=== PATIENT | male | born 2000 | race African-American/Black ===

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

== ENCOUNTER 2021-09-16 09:48 | Emergency (ER) | payer MEDICAID ==
[2021-09-16] MEDS ORDERED: Benzonatate 100 MG Cap PO ONE (10:40)
[2021-09-16] MEDS ORDERED: Ketorolac 60 MG/2 ML SDV IM ONE (10:40)
--- NOTE | 2021-09-16 11:11 | EDM.PDOC ---
ED HPI GENERAL MEDICAL PROBLEM - General Chief Complaint: Respiratory Problem Stated Complaint: HEADACHE COUGH CHILLS Time Seen by Provider: 09/16/21 09:57 Source of Information: Reports: Patient History Limitations: Reports: No Limitations - History of Present Illness INITIAL COMMENTS - FREE TEXT/NARRATIVE: 21-year-old male presents to the emergency department today with complaints of cough, headache, fever and chills and worsening generalized body aches that started approximately 2 days ago. Patient states he is otherwise healthy and is not a smoker. He does not take any prescription medications. He denies any change in his appetite and has been taking p.o. fluids well. States he has not taken any [id number] medications today to treat the discomfort as he did not want a mask any symptoms for our evaluation. - Related Data Allergies Allergy/AdvReac Type Severity Reaction Status Date / Time No Known Allergies Allergy Verified 09/16/21 10:02 Home Meds: Home Meds Oseltamivir [Tamiflu] 75 mg PO BID #10 cap 09/16/21 [Rx] Past Medical History - Past Health History Medical/Surgical History: Denies Medical/Surgical History HEENT History: Reports: Other (See Below) Other HEENT History: strep throat Musculoskeletal History: Reports: Fracture Other Musculoskeletal History: facial fx's. Neurological History: Reports: Headaches, Chronic - Past Surgical History HEENT Surgical History: Reports: Oral Surgery GI Surgical History: Reports: Appendectomy Social & Family History - Family History Family Medical History: No Pertinent Family History - Tobacco Use Tobacco Use Status *Q: Never Tobacco User Second Hand Smoke Exposure: No - Caffeine Use Caffeine Use: Reports: None - Recreational Drug Use Recreational Drug Use: No - Living Situation & Occupation Living situation: Reports: with Family Occupation: Student (10th grade) ED ROS GENERAL - Review of Systems Review Of Systems: Comprehensive ROS is negative, except as noted in HPI. ED EXAM, GENERAL - Physical Exam Exam: See Below Exam Limited By: No Limitations General Appearance: Alert, WD/WN, Mild Distress Ears: Normal External Exam, Normal Canal, Hearing Grossly Normal. No: Normal TMs (Erythema noted to tympanic membranes bilaterally) Ear Exam: Bilateral Ear: Auricle Normal, Canal Normal, TM Red Nose: Normal Inspection Throat/Mouth: Normal Inspection, Normal Lips, Normal Oropharynx, Normal Voice, No Airway Compromise Head: Atraumatic, Normocephalic Neck: Normal Inspection, Supple, Non-Tender. No: Lymphadenopathy (L), Lymphadenopathy (R) Respiratory/Chest: No Respiratory Distress, Lungs Clear, Normal Breath Sounds, No Accessory Muscle Use, Chest Non-Tender Cardiovascular: Normal Peripheral Pulses, Regular Rate, Rhythm, No Edema, No Murmur Peripheral Pulses: 2+: Radial (L), Radial (R) GI/Abdominal: Normal Bowel Sounds, Soft, Non-Tender, No Distention (Male) Exam: Deferred Rectal (Males) Exam: Deferred Back Exam: Normal Inspection Extremities: Normal Inspection Neurological: Alert, Oriented, Normal Cognition Psychiatric: Normal Affect, Normal Mood Skin Exam: Warm, Intact, Normal Color, No Rash, Diaphoretic Lymphatic: No Adenopathy Course - Vital Signs Text/Narrative:: As stated above, patient presents with flulike symptoms that started 2 days ago. States progressively getting worse. Upon exam, the patient is ill-appearing. He does have a paroxysmal dry cough. Lungs are clear, heart is regular, abdomen is soft and nontender. Tympanic membranes are erythematous but I do not appreciate any edema to indicate infection. Oropharynx is unremarkable. I do not appreciate any tonsillar or cervical lymphadenopathy. Patient will be tested for Covid and influenza. We will give the patient Tessalon Perles for his cough as well as a shot of Toradol for his body aches and headache. Last Recorded V/S: Last Vital Signs Temp 97.7 F 09/16/21 09:59 Pulse 115 H 09/16/21 09:59 Resp 18 09/16/21 09:59 BP 123/91 H 09/16/21 09:59 Pulse Ox 99 09/16/21 09:59 - Orders/Labs/Meds Labs: Laboratory Tests 09/16/21 Range/Units 10:25 Influenza Type A RNA Positive H (NEGATIVE) Influenza Type B RNA Negative (NEGATIVE) SARS-CoV-2 RNA ([facility]) Negative (NEGATIVE) Meds: Medications Discontinued Medications Generic Name Dose Route Start Last Admin Trade Name Freq PRN Reason Stop Dose Admin Benzonatate 200 mg 09/16/21 10:40 09/16/21 10:52 Benzonatate 100 Mg Cap PO 09/16/21 10:41 200 mg ONETIME ONE Administration Ketorolac Tromethamine 60 mg 09/16/21 10:40 09/16/21 10:52 Ketorolac 60 Mg/2 Ml Sdv IM 09/16/21 10:41 60 mg ONETIME ONE Administration - Re-Assessments/Exams Free Text/Narrative Re-Assessment/Exam: 09/16/21 11:34 Patient did test positive for influenza A. Influenza B and Covid testing is negative. 09/16/21 11:56 Patient will be discharged home with a prescription for Tamiflu 75 mg twice daily. He has been instructed to quarantine for 10 days time total. He is also been instructed to take Tylenol 650 mg every 4 hours as needed for body aches or fever or ibuprofen 600 mg every 6-8 hours as needed for body aches or fever. He states that the Tessalon Perles really did not help much for his cough. Recommend that he gets acute illness to notify her in his room to assist with his breathing and cough. Departure - Departure Time of Disposition: 11:58 Disposition: Home, Self-Care 01 Condition: Good Clinical Impression: Influenza - Discharge Information Prescriptions: Oseltamivir [Tamiflu] 75 mg PO BID #10 cap Referrals: Liana Darden PA-C [Primary Care Provider] - Forms: ED Department Discharge Additional Instructions: You were seen in the emergency department today with complaints of a 2-day history of flulike symptoms. While in the emergency department you did receive a medication for your cough as well as pain medication for your headaches and b andres aches. You were tested for influenza and Covid. Influenza A test did come back positive however influenza B and Covid testing were negative on today's visit. Treatment for influenza is to get plenty of rest and drink plenty of fluids. This is a viral infection and does take 10 days to run its course. As discussed, I have sent a medication to [facility] pharmacy on [address]. This medication is an antiviral medication and has been shown to decrease the severity and length of time you have the symptoms of influenza. That is called Tamiflu and it needs to be taken twice daily for the next 5 days. Also be aware that a side effect of this medication is stomach cramping and diarrhea. Recommend follow-up with your primary care provider in about a week if you are not feeling better. You will need to quarantine for 10 days time as influenza is extremely contagious. Sepsis Event Note (ED) - Evaluation Sepsis Screening Result: No Definite Risk - Focused Exam Vital Signs: Vital Signs Temp Pulse Resp BP Pulse Ox 09/16/21 09:59 97.7 F 115 H 18 123/91 H 99
[2021-09-16 11:26] LABS: CORONAVIRUS COVID-19 NAA NEGATIVE (NEGATIVE)
== END 2021-09-16 12:10 | disposition home or self-care (01) ==
LOC: JD.ED 09:48
DX: J11.1 Influenza due to unidentified influenza virus with other respiratory manifestations (principal); Z20.822 Contact with and (suspected) exposure to COVID-19
CPT/HCPCS: 0240U; 96372; 99284; A9270-GY; J1885

== ENCOUNTER 2022-02-16 11:46 | Emergency (ER) | payer MEDICAID, OTHER ==
[2022-02-16 13:52] LABS: ESTIMATED GFR > 60 mL/min (>60)
[2022-02-16 13:55] LABS: CORONAVIRUS COVID-19 NAA POSITIVE (NEGATIVE)
== END 2022-02-16 14:37 | disposition home or self-care (01) ==
LOC: EDSEX 11:46 → JD.ED 11:46
DX: U07.1 COVID-19 (principal); J40 Bronchitis, not specified as acute or chronic; Z79.899 Other long term (current) drug therapy; Z90.49 Acquired absence of other specified parts of digestive tract
CPT/HCPCS: 0241U; 36415; 71045; 80053; 85025; 99283; 99284

== ENCOUNTER 2022-04-09 06:39 | Emergency (ER) | payer MEDICAID ==
[2022-04-09] MEDS ORDERED: Albuterol/Ipratropium 3.0-0.5 MG/3 ML Neb Soln NEB ONE ×2 (07:08→07:43)
[2022-04-09] MEDS ORDERED: predniSONE 20 MG Tab PO ONE (07:08)
== END 2022-04-09 08:45 | disposition home or self-care (01) ==
LOC: JD.ED 06:39
DX: J45.901 Unspecified asthma with (acute) exacerbation (principal); Z79.899 Other long term (current) drug therapy; Z86.16 Personal history of COVID-19
CPT/HCPCS: 71045; 94640; 99285; J7512; J7620-GY

== ENCOUNTER 2022-05-26 23:40 | Emergency (ER) | payer MEDICAID ==
[2022-05-27 00:37] LABS: CORONAVIRUS COVID-19 NAA NEGATIVE (NEGATIVE)
== END 2022-05-27 02:00 | disposition home or self-care (01) ==
LOC: JD.ED 23:40
DX: J06.9 Acute upper respiratory infection, unspecified (principal); Z79.899 Other long term (current) drug therapy; Z86.16 Personal history of COVID-19; Z90.49 Acquired absence of other specified parts of digestive tract; Z20.822 Contact with and (suspected) exposure to COVID-19
CPT/HCPCS: 0241U; 71046; 99284

== ENCOUNTER 2022-08-31 11:30 | Emergency (ER) | payer MEDICAID ==
[2022-08-31] MEDS ORDERED: Ketorolac 60 MG/2 ML SDV IM ONE (12:37)
== END 2022-08-31 13:33 | disposition home or self-care (01) ==
LOC: JD.ED 11:30
DX: S39.011A Strain of muscle, fascia and tendon of abdomen, initial encounter (principal); Z86.16 Personal history of COVID-19
CPT/HCPCS: 96372; 99283; J1885

== ENCOUNTER 2022-10-25 08:08 | Emergency (ER) | payer MEDICAID ==
[2022-10-25 09:44] LABS: CORONAVIRUS COVID-19 NAA NEGATIVE (NEGATIVE)
== END 2022-10-25 10:55 | disposition home or self-care (01) ==
LOC: JD.ED 08:08
DX: J02.0 Streptococcal pharyngitis (principal); Z86.16 Personal history of COVID-19; Z20.822 Contact with and (suspected) exposure to COVID-19
CPT/HCPCS: 0240U; 87651; 99284; 99283